=== PATIENT | female | born 1945 | race Caucasian/White ===

== ENCOUNTER 2018-06-20 17:38 | Inpatient (IN) | payer MEDICARE, OTHER ==
[~2018-06-20] VITALS: Ht 170.2 cm; Wt 80.9 kg
--- NOTE | 2018-06-20 18:27 | NUR ---
Dr. Ferguson at bedside to evaluate pt.
[2018-06-20] MEDS ORDERED: SODIUM CHLORIDE 0.9% 1,000 ML IV ONE (18:37)
--- NOTE | 2018-06-20 18:51 | NUR ---
requested records from [facility] in [facility].
[2018-06-20] MEDS ORDERED: HYDROmorphone 2 MG/ML, 1ML IVPush PRN (19:00)
[2018-06-20] MEDS ORDERED: ONDANSETRON 2MG/ML, 2ML IVPush ONE (19:00)
[2018-06-20] MEDS ORDERED: SODIUM CHLORIDE FLUSH 10ML SYR IVF ONE (19:00)
--- NOTE | 2018-06-20 19:00 | NUR ---
Port accessed, labs drawn with track laborer at bedside.
--- NOTE | 2018-06-20 19:04 | NUR ---
EDT at bedside for EKG.
[2018-06-20 19:07] LABS: MEAN CORPUSCULAR HEMOGLOBIN 33.3 pg (27.0-34.8); MEAN CORPUSCULAR HGB CONC 34.2 g/dL (32.4-35.8); MEAN CORPUSCULAR VOLUME 97.6 fL (80-100); MEAN PLATELET VOLUME 8.4 fL (7.4-10.4); PLATELET COUNT 196 x10^3/uL (130-400); RED BLOOD COUNT 3.28 x10^6/uL (3.82-5.3); RED CELL DISTRIBUTION WIDTH 19.5 % (9.6-15.2)
[2018-06-20] MEDS ORDERED: ONDANSETRON 2MG/ML, 2ML ONE (19:07)
[2018-06-20] MEDS ORDERED: HYDROmorphone 2 MG/ML, 1ML ONE (19:08)
[2018-06-20 19:19] LABS: ALANINE AMINOTRANSFERASE 496 U/L (12-78); ALBUMIN 2.6 g/dL (3.4-5.0); ANION GAP 11 mmol/L (5-15); CHLORIDE 99 mmol/L (98-107); CREATININE 0.52 mg/dL (0.55-1.02)
[2018-06-20 19:26] LABS: ALKALINE PHOSPHATASE 303 U/L (45-117); BILIRUBIN,TOTAL 2.1 mg/dL (0.2-1.0); TOTAL PROTEIN 5.3 g/dL (6.4-8.2)
[2018-06-20 19:27] LABS: MD YES
[2018-06-20 19:31] LABS: ANISOCYTOSIS 1+; BAND#(MANUAL) 2.85 x10^3/uL; BANDS%(MANUAL) 23 % (0-7); LYMPHS% (MANUAL) 4 % (22-44); MONOS#(MANUAL) 0.12 x10^3/uL (0.3-2.7); MONOS% (MANUAL) 1 % (2-9); POLYCHROMASIA 1+; SEG#(MANUAL) 8.93 x10^3/uL (1.8-6.8); SEGS% (MANUAL) 72 % (42-75)
[2018-06-20 19:32] LABS: <PLATELET ESTIMATE> ADEQUATE; LARGE PLATELETS 1+; PMNS WITH VACUOLES 2+
[2018-06-20 19:42] LABS: INTERNATIONAL NORMALIZED RATIO 1.25 (0.93-1.1); PROTHROMBIN TIME 13.1 Seconds (9.6-11.5)
--- NOTE | 2018-06-20 20:25 | NUR ---
[facility] in [facility] - 06/20/18 at 2026 by ALISA Mini cath armando well
--- NOTE | 2018-06-20 20:27 | NUR ---
pt ambulatory to BR for urine void. Unable to produce urine. Back to bed. IVF infusing
--- NOTE | 2018-06-20 20:46 | NUR ---
SPO2 90% RA. Placed on 2L O2 N/C at this time.
[2018-06-20] MEDS ORDERED: OMNIPAQUE 350 MG/ML, 100ML BOTTLE ONE (21:00)
--- NOTE | 2018-06-20 21:28 | NUR ---
Pt resting on gurney, labs drawn for blood cultures x 2 and lactate. Pt states that pain is much improved after pain medication. Pt more talkative, eyes open, pt and family made aware that we are waiting on CT scan results. VS rechecked and stable. IVF running. Pt aware of plan for straight cath for urine sample, pt agrees.
[2018-06-20] MEDS ORDERED: PIPERACILLIN/TAZO/PMX 3.375GM 50 ML IV ONE (22:00)
[2018-06-20] MEDS ORDERED: VANCOMYCIN PER PHARMACY MC PRN (22:00)
--- NOTE | 2018-06-20 22:00 | NUR ---
Pt mini cathed, tolerated procedure well. Sample walked to lab, pt with 350 mL tea-colored urine output.
--- NOTE | 2018-06-20 22:20 | NUR ---
Dr. Ferguson at bedside to discuss ED findings and POC. Pt and family agree to fecal disimpaction with procedural sedation.
[2018-06-20 22:21] LABS: MICROSCOPIC INDICATED
[2018-06-20 22:23] LABS: CULTURE INDICATED? NO
[2018-06-20] MEDS ORDERED: PROPOFOL 10 MG/ML, 20ML ONE ×2 (22:25→23:03)
[2018-06-20] MEDS ORDERED: PROPOFOL 10 MG/ML, 20ML IVPush ONE (22:30)
[2018-06-20] MEDS ORDERED: VANCOMYCIN 1,300 MG in SODIUM CHLORIDE 0.9% 250 ML IV ONE (22:30)
[2018-06-20] MEDS ORDERED: MORP30TA81 PO (22:46)
[2018-06-20] MEDS ORDERED: ENOX60SY4 SC (22:46)
[2018-06-20] MEDS ORDERED: hydromorphone PO (22:46)
[2018-06-20] MEDS ORDERED: OMEP-110 PO (22:46)
[2018-06-20] MEDS ORDERED: ACET-1600 PO (22:46)
--- NOTE | 2018-06-20 23:26 | NUR ---
Dr. Ferguson at bedside for procedure. Pt turned onto left side, remains on all monitors, NC at 6lpm. 50 mg initial dose of propofol given.
--- NOTE | 2018-06-20 23:42 | NUR ---
Procedure complete, total dose of propofol given: 100 mg. Pt tolerated procedure well, moderate amount of cabezas/green stool removed by MD. Pt returned to supine position, propped to left slightly. NC O2 turned down to 2L. Dr. Ferguson to waiting room to retrieve family and update them.
--- NOTE | 2018-06-20 23:46 | NUR ---
RNAdriana, at bedside to witness propofol waste, 100 mg.
--- NOTE | 2018-06-20 23:54 | NUR ---
William SIMMONS, at bedside to evaluate pt for admission. IV Vanco started, ok per [facility].
[2018-06-21] MEDS ORDERED: POLYETHYLENE GLYCOL 17 GM PACKET PO PRN (00:30)
[2018-06-21] MEDS ORDERED: VANCOMYCIN PER PHARMACY MC PRN (00:30)
[2018-06-21] MEDS ORDERED: ONDANSETRON 2MG/ML, 2ML IVPush PRN (00:30)
[2018-06-21] MEDS ORDERED: BISACODYL 10 MG SUPP PR PRN (00:30)
--- NOTE | 2018-06-21 00:47 | NUR ---
Telephone SBAR report given to RNAdeline. Pt and family made aware of new room.
[2018-06-21 01:30] VITALS: BP 94/59
[2018-06-21] MEDS ORDERED: PHARMACOKINETIC CONSULTATION MC ONE (02:00)
[2018-06-21] MEDS ORDERED: PHARMACOKINETIC MONITORING MC PRN (02:00)
[2018-06-21] MEDS: NS + 40MEQ KCL 1,000 ML IV SCH ×2 (02:31→16:54)
[2018-06-21] MEDS: PIPERACILLIN/TAZO/PMX 3.375GM 50 ML IV SCH ×2 (02:31→08:00)
[2018-06-21 05:37] LABS: MEAN CORPUSCULAR HEMOGLOBIN 33.1 pg (27.0-34.8); MEAN CORPUSCULAR HGB CONC 33.7 g/dL (32.4-35.8); MEAN CORPUSCULAR VOLUME 98.4 fL (80-100); MEAN PLATELET VOLUME 8.9 fL (7.4-10.4); PLATELET COUNT 187 x10^3/uL (130-400); RED BLOOD COUNT 2.84 x10^6/uL (3.82-5.3); RED CELL DISTRIBUTION WIDTH 19.5 % (9.6-15.2)
[2018-06-21 05:50] LABS: CHLORIDE 102 mmol/L (98-107)
[2018-06-21 05:59] LABS: MD YES
[2018-06-21 06:02] LABS: ANISOCYTOSIS 1+; BAND#(MANUAL) 2.27 x10^3/uL; BANDS%(MANUAL) 12 % (0-7); LYMPH#(MANUAL) 0.38 x10^3/uL (1-3.4); LYMPHS% (MANUAL) 2 % (22-44); MONOS#(MANUAL) 0.57 x10^3/uL (0.3-2.7); MONOS% (MANUAL) 3 % (2-9); SEG#(MANUAL) 15.69 x10^3/uL (1.8-6.8); SEGS% (MANUAL) 83 % (42-75)
[2018-06-21 06:03] LABS: <PLATELET ESTIMATE> ADEQUATE; <PLT MORPHOLOGY> NORMAL PLT MORPH; PMNS WITH VACUOLES 1+
[2018-06-21 06:15] LABS: ALANINE AMINOTRANSFERASE 1233 U/L (12-78); ALBUMIN 2.2 g/dL (3.4-5.0); ALKALINE PHOSPHATASE 303 U/L (45-117); ANION GAP 10 mmol/L (5-15); CALCIUM 7.5 mg/dL (8.5-10.1); CREATININE 0.51 mg/dL (0.55-1.02); TOTAL PROTEIN 4.5 g/dL (6.4-8.2)
[2018-06-21 07:27] VITALS: BP 125/77
[2018-06-21] MEDS ORDERED: MAGNESIUM SULFATE PMX 4GM/100M 100 ML IV ONE (07:30)
[2018-06-21] MEDS ORDERED: METHYLNALTREXONE 12 MG/0.6 ML SQ SCH (09:00)
[2018-06-21] MEDS: SENNA/DOCUSATE TABLET PO SCH (09:43)
[2018-06-21] MEDS: ENOXAPARIN 60 MG/0.6 ML SQ SCH ×2 (09:44→19:58)
[2018-06-21] MEDS: OMEPRAZOLE 20 MG CAPSULE.DR PO SCH ×2 (09:44→19:58)
[2018-06-21] MEDS ORDERED: MORPHINE SULFATE 4 MG/ML, 1ML IVPush PRN (10:30)
[2018-06-21 13:01] VITALS: BP 167/96
[2018-06-21] MEDS ORDERED: HYDROmorphone 2 MG/ML, 1ML ONE ×3 (14:11→23:36)
[2018-06-21] MEDS: HYDROmorphone 1 MG/ML, 1ML IV PRN ×5 (14:15→23:37)
[2018-06-21] MEDS: MEROPENEM 1 GM in SODIUM CHLORIDE 0.9% 100 ML IV SCH ×2 (14:15→22:08)
[2018-06-21 20:23] LABS: ALBUMIN 2.4 g/dL (3.4-5.0); ANION GAP 8 mmol/L (5-15); CALCIUM 7.6 mg/dL (8.5-10.1); CHLORIDE 102 mmol/L (98-107)
[2018-06-21 20:32] LABS: ALANINE AMINOTRANSFERASE 1059 U/L (12-78); ALKALINE PHOSPHATASE 344 U/L (45-117); BILIRUBIN,TOTAL 2.2 mg/dL (0.2-1.0); CREATININE 0.39 mg/dL (0.55-1.02); TOTAL PROTEIN 5.2 g/dL (6.4-8.2)
[2018-06-21 21:05] VITALS: BP 172/103
[2018-06-21] MEDS: ACETAMINOPHEN 325 MG TABLET PO PRN (21:35)
[2018-06-21] MEDS: hydrALAzine 20 MG/ML, 1ML IV PRN (22:08)
[2018-06-21] MEDS: VANCOMYCIN 1,300 MG in SODIUM CHLORIDE 0.9% 250 ML IV SCH (23:32)
[2018-06-22] MEDS: NS + 40MEQ KCL 1,000 ML IV SCH ×3 (02:24→22:56)
[2018-06-22 03:07] VITALS: BP 156/92
[2018-06-22] MEDS ORDERED: HYDROmorphone 2 MG/ML, 1ML ONE ×5 (05:39→22:51)
[2018-06-22] MEDS: MEROPENEM 1 GM in SODIUM CHLORIDE 0.9% 100 ML IV SCH ×3 (05:42→22:03)
[2018-06-22] MEDS: HYDROmorphone 1 MG/ML, 1ML IV PRN ×5 (05:42→22:56)
[2018-06-22 06:26] LABS: BASOPHILS % (AUTO) 0 % (0-1); EOSINOPHILS # (AUTO) 0.07 x10^3/uL (0-0.4); EOSINOPHILS % (AUTO) 0 % (1-7); LYMPHOCYTES # (AUTO) 0.48 x10^3/uL (1-3.4); LYMPHOCYTES % (AUTO) 3 % (22-44); MD NO; MEAN CORPUSCULAR HEMOGLOBIN 32.9 pg (27.0-34.8); MEAN CORPUSCULAR HGB CONC 33.8 g/dL (32.4-35.8); MEAN CORPUSCULAR VOLUME 97.4 fL (80-100); MONOCYTES # (AUTO) 0.91 x10^3/uL (0.2-0.8); MONOCYTES % (AUTO) 5 % (2-9); NEUTROPHILS # (AUTO) 16.59 x10^3/uL (1.8-6.8); NEUTROPHILS % (AUTO) 92 % (42-75); PLATELET COUNT 222 x10^3/uL (130-400); RED BLOOD COUNT 3.16 x10^6/uL (3.82-5.3); RED CELL DISTRIBUTION WIDTH 19.9 % (9.6-15.2)
[2018-06-22 06:36] LABS: CHLORIDE 104 mmol/L (98-107)
[2018-06-22 06:42] LABS: ALANINE AMINOTRANSFERASE 930 U/L (12-78); ALBUMIN 2.5 g/dL (3.4-5.0); ALKALINE PHOSPHATASE 358 U/L (45-117); ANION GAP 6 mmol/L (5-15); BILIRUBIN,TOTAL 1.6 mg/dL (0.2-1.0); CALCIUM 7.9 mg/dL (8.5-10.1); CREATININE 0.33 mg/dL (0.55-1.02); TOTAL PROTEIN 5.5 g/dL (6.4-8.2)
[2018-06-22 07:18] VITALS: BP 165/73
[2018-06-22] MEDS ORDERED: GOLYTELY 4,000ML ORAL.SOL PO ONE (09:00)
[2018-06-22] MEDS: SENNA/DOCUSATE TABLET PO SCH (09:17)
[2018-06-22] MEDS: OMEPRAZOLE 20 MG CAPSULE.DR PO SCH ×2 (09:17→21:00)
[2018-06-22] MEDS: ENOXAPARIN 60 MG/0.6 ML SQ SCH ×2 (10:57→22:05)
[2018-06-22 13:30] VITALS: BP 163/94
[2018-06-22 20:14] VITALS: BP_SYST 188; BP_SYST 195; BP_DIAS 100; BP_DIAS 108
[2018-06-22 20:28] VITALS: BP 177/101
[2018-06-22] MEDS: hydrALAzine 20 MG/ML, 1ML IV PRN (20:36)
[2018-06-22] MEDS: BISACODYL 10 MG SUPP PR SCH (21:20)
[2018-06-22 22:02] VITALS: BP 144/82
[2018-06-22] MEDS: VANCOMYCIN 1,300 MG in SODIUM CHLORIDE 0.9% 250 ML IV SCH (23:00)
[2018-06-23 01:26] VITALS: BP 164/94
[2018-06-23] MEDS ORDERED: HYDROmorphone 2 MG/ML, 1ML ONE ×6 (03:25→22:13)
[2018-06-23] MEDS: HYDROmorphone 1 MG/ML, 1ML IV PRN ×6 (03:30→22:17)
[2018-06-23] MEDS: MEROPENEM 1 GM in SODIUM CHLORIDE 0.9% 100 ML IV SCH ×2 (05:52→14:06)
[2018-06-23 06:23] LABS: BASOPHILS # (AUTO) 0.01 x10^3/uL (0-0.1); BASOPHILS % (AUTO) 0 % (0-1); EOSINOPHILS % (AUTO) 0 % (1-7); LYMPHOCYTES % (AUTO) 3 % (22-44); MD NO; MEAN CORPUSCULAR HEMOGLOBIN 32.7 pg (27.0-34.8); MEAN CORPUSCULAR HGB CONC 33.5 g/dL (32.4-35.8); MEAN CORPUSCULAR VOLUME 97.6 fL (80-100); MEAN PLATELET VOLUME 8.8 fL (7.4-10.4); MONOCYTES # (AUTO) 0.75 x10^3/uL (0.2-0.8); MONOCYTES % (AUTO) 4 % (2-9); NEUTROPHILS # (AUTO) 16.53 x10^3/uL (1.8-6.8); NEUTROPHILS % (AUTO) 93 % (42-75); PLATELET COUNT 198 x10^3/uL (130-400); RED BLOOD COUNT 3.03 x10^6/uL (3.82-5.3); RED CELL DISTRIBUTION WIDTH 20.1 % (9.6-15.2)
[2018-06-23 06:40] LABS: CHLORIDE 102 mmol/L (98-107)
[2018-06-23 06:49] LABS: ALANINE AMINOTRANSFERASE 551 U/L (12-78); ALBUMIN 2.3 g/dL (3.4-5.0); ALKALINE PHOSPHATASE 322 U/L (45-117); ANION GAP 10 mmol/L (5-15); CALCIUM 7.4 mg/dL (8.5-10.1); CREATININE 0.24 mg/dL (0.55-1.02)
[2018-06-23 07:59] VITALS: BP 197/103
[2018-06-23] MEDS: SENNA/DOCUSATE TABLET PO SCH (08:39)
[2018-06-23] MEDS: BISACODYL 10 MG SUPP PR SCH ×2 (08:39→20:40)
[2018-06-23] MEDS: OMEPRAZOLE 20 MG CAPSULE.DR PO SCH ×2 (08:39→20:13)
[2018-06-23] MEDS: hydrALAzine 20 MG/ML, 1ML IV PRN (08:39)
[2018-06-23] MEDS: ENOXAPARIN 60 MG/0.6 ML SQ SCH ×2 (08:39→21:00)
[2018-06-23 09:36] VITALS: BP 144/88
[2018-06-23 14:20] VITALS: BP 144/82
[2018-06-23] MEDS: CEFTRIAXONE PMX 2GM/50ML 50 ML IV SCH (20:14)
[2018-06-23 20:40] VITALS: BP 158/87
[2018-06-23] MEDS: ACETAMINOPHEN 325 MG TABLET PO PRN (21:46)
[2018-06-24 01:12] VITALS: BP 147/83
[2018-06-24] MEDS ORDERED: HYDROmorphone 2 MG/ML, 1ML ONE ×6 (02:15→21:59)
[2018-06-24] MEDS: HYDROmorphone 1 MG/ML, 1ML IV PRN ×6 (02:19→22:04)
[2018-06-24 08:17] LABS: ALANINE AMINOTRANSFERASE 406 U/L (12-78); ALBUMIN 2.5 g/dL (3.4-5.0); ANION GAP 8 mmol/L (5-15); CALCIUM 8.2 mg/dL (8.5-10.1); CHLORIDE 97 mmol/L (98-107); CREATININE 0.28 mg/dL (0.55-1.02)
[2018-06-24 08:19] LABS: ALKALINE PHOSPHATASE 309 U/L (45-117); BILIRUBIN,TOTAL 0.9 mg/dL (0.2-1.0); TOTAL PROTEIN 5.8 g/dL (6.4-8.2)
[2018-06-24 08:28] LABS: BASOPHILS % (AUTO) 0 % (0-1); EOSINOPHILS # (AUTO) 0.03 x10^3/uL (0-0.4); EOSINOPHILS % (AUTO) 0 % (1-7); LYMPHOCYTES # (AUTO) 0.64 x10^3/uL (1-3.4); LYMPHOCYTES % (AUTO) 4 % (22-44); MD SCAN; MEAN CORPUSCULAR HGB CONC 32.7 g/dL (32.4-35.8); MEAN CORPUSCULAR VOLUME 98.1 fL (80-100); MEAN PLATELET VOLUME 8.6 fL (7.4-10.4); MONOCYTES % (AUTO) 7 % (2-9); NEUTROPHILS # (AUTO) 13.45 x10^3/uL (1.8-6.8); NEUTROPHILS % (AUTO) 89 % (42-75); PLATELET COUNT 230 x10^3/uL (130-400); RED BLOOD COUNT 3.48 x10^6/uL (3.82-5.3)
[2018-06-24 08:29] LABS: HEMOGRAM NOTE RECHECKED; RED CELL DISTRIBUTION WIDTH 20.2 % (9.6-15.2)
[2018-06-24] MEDS: OMEPRAZOLE 20 MG CAPSULE.DR PO SCH ×2 (08:30→19:34)
[2018-06-24] MEDS: SENNA/DOCUSATE TABLET PO SCH (08:31)
[2018-06-24] MEDS: BISACODYL 10 MG SUPP PR SCH ×2 (09:00→19:34)
[2018-06-24] MEDS: ENOXAPARIN 80 MG/0.8 ML SQ SCH ×2 (09:00→19:34)
[2018-06-24 09:02] VITALS: BP 197/100
[2018-06-24] MEDS: hydrALAzine 20 MG/ML, 1ML IV PRN (09:51)
[2018-06-24] MEDS ORDERED: FENTANYL PF 100 MCG/2ML ONE (11:00)
[2018-06-24] MEDS ORDERED: MIDAZOLAM 1 MG/ML, 5ML ONE (11:00)
[2018-06-24] MEDS ORDERED: NALOXONE 1 MG/ML, 2ML ONE (11:00)
[2018-06-24] MEDS ORDERED: FLUMAZENIL 0.1 MG/1 ML, 5ML ONE (11:00)
[2018-06-24] MEDS ORDERED: LIDOCAINE-MPF 1%, 5ML ONE ×2 (11:02→11:27)
[2018-06-24 13:05] VITALS: BP 149/82
[2018-06-24] MEDS ORDERED: GOLYTELY 4,000ML ORAL.SOL PO ONE (14:00)
[2018-06-24] MEDS: CEFTRIAXONE PMX 2GM/50ML 50 ML IV SCH (18:07)
[2018-06-24] MEDS: metroNIDAZOLE 500 MG TABLET PO SCH (18:08)
[2018-06-24 19:07] LABS: BASOPHILS % (AUTO) 0 % (0-1); EOSINOPHILS % (AUTO) 0 % (1-7); LYMPHOCYTES % (AUTO) 5 % (22-44); MD NO; MEAN CORPUSCULAR HEMOGLOBIN 32.5 pg (27.0-34.8); MEAN CORPUSCULAR HGB CONC 33.7 g/dL (32.4-35.8); MEAN CORPUSCULAR VOLUME 96.4 fL (80-100); MEAN PLATELET VOLUME 8.4 fL (7.4-10.4); MONOCYTES # (AUTO) 1.12 x10^3/uL (0.2-0.8); MONOCYTES % (AUTO) 9 % (2-9); NEUTROPHILS # (AUTO) 11.26 x10^3/uL (1.8-6.8); NEUTROPHILS % (AUTO) 86 % (42-75); PLATELET COUNT 232 x10^3/uL (130-400); RED BLOOD COUNT 3.34 x10^6/uL (3.82-5.3); RED CELL DISTRIBUTION WIDTH 19.6 % (9.6-15.2)
[2018-06-24 19:19] LABS: ALANINE AMINOTRANSFERASE 318 U/L (12-78); ALBUMIN 2.3 g/dL (3.4-5.0); ANION GAP 9 mmol/L (5-15); CALCIUM 7.8 mg/dL (8.5-10.1); CHLORIDE 97 mmol/L (98-107); CREATININE 0.22 mg/dL (0.55-1.02)
[2018-06-24 19:22] LABS: ALKALINE PHOSPHATASE 287 U/L (45-117); BILIRUBIN,TOTAL 0.8 mg/dL (0.2-1.0); TOTAL PROTEIN 5.4 g/dL (6.4-8.2)
[2018-06-24 19:49] VITALS: BP 169/96
[2018-06-25] MEDS: metroNIDAZOLE 500 MG TABLET PO SCH ×2 (00:32→08:24)
[2018-06-25 00:51] VITALS: BP 193/86
[2018-06-25] MEDS: hydrALAzine 20 MG/ML, 1ML IV PRN ×2 (01:00→19:56)
[2018-06-25] MEDS ORDERED: HYDROmorphone 2 MG/ML, 1ML ONE ×6 (02:01→22:15)
[2018-06-25] MEDS: HYDROmorphone 1 MG/ML, 1ML IV PRN ×6 (02:04→22:18)
[2018-06-25 02:07] VITALS: BP 133/78
[2018-06-25 07:04] VITALS: BP 137/78
[2018-06-25] MEDS ORDERED: SODIUM PHOSPHATE 4 MEQ/ML IV SCH (07:30)
[2018-06-25] MEDS ORDERED: MAGNESIUM SULFATE PMX 4GM/100M 100 ML IVPB ONE (07:30)
[2018-06-25] MEDS ORDERED: POTASSIUM CHLORIDE 20 MEQ TAB.ER.PRT PO ONE ×2 (08:00→11:30)
[2018-06-25] MEDS: ENOXAPARIN 80 MG/0.8 ML SQ SCH ×2 (08:23→19:55)
[2018-06-25] MEDS: OMEPRAZOLE 20 MG CAPSULE.DR PO SCH ×2 (08:24→19:57)
[2018-06-25] MEDS: SENNA/DOCUSATE TABLET PO SCH (08:24)
[2018-06-25] MEDS: METOCLOPRAMIDE 5 MG/ML, 2ML IVPush SCH ×2 (08:25→19:56)
[2018-06-25] MEDS: BISACODYL 10 MG SUPP PR SCH ×2 (08:49→19:57)
[2018-06-25] MEDS ORDERED: SODIUM PHOSPHATE 30 MMOL in SODIUM CHLORIDE 0.9% 500 ML IV ONE (09:00)
[2018-06-25 13:46] VITALS: BP 118/72
[2018-06-25] MEDS ORDERED: MAGNESIUM CITRATE 300ML ORAL SOL PO ONE (17:00)
[2018-06-25] MEDS: METRONIDAZOLE PMX 500MG/100ML 100 ML IV SCH (17:05)
[2018-06-25 19:28] VITALS: BP 171/99
[2018-06-25] MEDS: CEFTRIAXONE PMX 2GM/50ML 50 ML IV SCH (19:56)
[2018-06-25] MEDS: ACETAMINOPHEN 325 MG TABLET PO PRN (21:07)
[2018-06-26] MEDS: METRONIDAZOLE PMX 500MG/100ML 100 ML IV SCH ×3 (00:01→16:28)
[2018-06-26 03:00] VITALS: BP 130/77
[2018-06-26] MEDS ORDERED: HYDROmorphone 2 MG/ML, 1ML ONE ×2 (04:10→08:51)
[2018-06-26] MEDS: HYDROmorphone 1 MG/ML, 1ML IV PRN ×2 (04:14→08:57)
[2018-06-26] MEDS: ACETAMINOPHEN 325 MG TABLET PO PRN (04:14)
[2018-06-26 04:42] LABS: BASOPHILS # (AUTO) 0.02 x10^3/uL (0-0.1); BASOPHILS % (AUTO) 0 % (0-1); EOSINOPHILS # (AUTO) 0.05 x10^3/uL (0-0.4); EOSINOPHILS % (AUTO) 1 % (1-7); LYMPHOCYTES # (AUTO) 0.92 x10^3/uL (1-3.4); LYMPHOCYTES % (AUTO) 9 % (22-44); MD NO; MEAN CORPUSCULAR HEMOGLOBIN 32.1 pg (27.0-34.8); MEAN CORPUSCULAR HGB CONC 32.8 g/dL (32.4-35.8); MEAN CORPUSCULAR VOLUME 97.8 fL (80-100); MEAN PLATELET VOLUME 9.1 fL (7.4-10.4); MONOCYTES # (AUTO) 1.12 x10^3/uL (0.2-0.8); MONOCYTES % (AUTO) 12 % (2-9); NEUTROPHILS # (AUTO) 7.65 x10^3/uL (1.8-6.8); NEUTROPHILS % (AUTO) 78 % (42-75); PLATELET COUNT 203 x10^3/uL (130-400); RED BLOOD COUNT 3.22 x10^6/uL (3.82-5.3); RED CELL DISTRIBUTION WIDTH 19.5 % (9.6-15.2)
[2018-06-26 04:43] LABS: ALANINE AMINOTRANSFERASE 203 U/L (12-78); ALBUMIN 2.2 g/dL (3.4-5.0); ANION GAP 8 mmol/L (5-15); CALCIUM 7.5 mg/dL (8.5-10.1); CHLORIDE 95 mmol/L (98-107)
[2018-06-26 04:44] LABS: ALKALINE PHOSPHATASE 229 U/L (45-117); BILIRUBIN,TOTAL 0.7 mg/dL (0.2-1.0)
[2018-06-26] MEDS ORDERED: POTASSIUM CHLORIDE 20 MEQ TAB.ER.PRT PO ONE ×2 (05:30→09:30)
[2018-06-26 07:28] VITALS: BP 173/82
[2018-06-26] MEDS: OMEPRAZOLE 20 MG CAPSULE.DR PO SCH ×2 (08:36→20:27)
[2018-06-26] MEDS: ENOXAPARIN 80 MG/0.8 ML SQ SCH ×2 (08:37→20:26)
[2018-06-26] MEDS: METOCLOPRAMIDE 5 MG/ML, 2ML IVPush SCH (08:38)
[2018-06-26] MEDS: SENNA/DOCUSATE TABLET PO SCH (08:39)
[2018-06-26] MEDS: BISACODYL 10 MG SUPP PR SCH ×2 (08:39→20:27)
[2018-06-26] MEDS: POTASSIUM CHLORIDE 20 MEQ TAB.ER.PRT PO SCH ×3 (09:00→20:27)
[2018-06-26] MEDS: AMLODIPINE 2.5 MG TABLET PO SCH (10:17)
[2018-06-26] MEDS: HYDROmorphone 2 MG/ML, 1ML IV PRN ×6 (13:11→23:30)
[2018-06-26 14:56] VITALS: BP 176/120
[2018-06-26 15:45] VITALS: BP 166/94
[2018-06-26 19:33] VITALS: BP 157/95
[2018-06-26] MEDS ORDERED: OMNIPAQUE 350 MG/ML, 100ML BOTTLE ONE (20:05)
[2018-06-26] MEDS: CEFTRIAXONE PMX 2GM/50ML 50 ML IV SCH (20:26)
[2018-06-27] MEDS: METRONIDAZOLE PMX 500MG/100ML 100 ML IV SCH ×3 (00:01→16:22)
[2018-06-27] MEDS: HYDROmorphone 2 MG/ML, 1ML IV PRN ×5 (02:21→19:35)
[2018-06-27 02:59] VITALS: BP 147/88
[2018-06-27] MEDS ORDERED: KETOROLAC 30 MG/1 ML IVPush PRN (03:00)
[2018-06-27] MEDS ORDERED: KETOROLAC 30 MG/1 ML IM PRN (03:00)
[2018-06-27 05:12] LABS: MEAN CORPUSCULAR HGB CONC 32.8 g/dL (32.4-35.8); MEAN CORPUSCULAR VOLUME 97.6 fL (80-100); MEAN PLATELET VOLUME 8.9 fL (7.4-10.4); PLATELET COUNT 166 x10^3/uL (130-400); RED BLOOD COUNT 2.94 x10^6/uL (3.82-5.3); RED CELL DISTRIBUTION WIDTH 19.9 % (9.6-15.2)
[2018-06-27 05:16] LABS: ANION GAP 6 mmol/L (5-15); CALCIUM 7.3 mg/dL (8.5-10.1); CHLORIDE 97 mmol/L (98-107)
[2018-06-27 05:19] LABS: ALANINE AMINOTRANSFERASE 144 U/L (12-78); ALKALINE PHOSPHATASE 184 U/L (45-117); BILIRUBIN,TOTAL 0.5 mg/dL (0.2-1.0); CREATININE 0.32 mg/dL (0.55-1.02); TOTAL PROTEIN 4.7 g/dL (6.4-8.2)
[2018-06-27 05:51] LABS: BASOPHILS % (AUTO) 0 % (0-1); EOSINOPHILS # (AUTO) 0.07 x10^3/uL (0-0.4); EOSINOPHILS % (AUTO) 1 % (1-7); LYMPHOCYTES # (AUTO) 0.58 x10^3/uL (1-3.4); LYMPHOCYTES % (AUTO) 6 % (22-44); MD SCAN; MONOCYTES # (AUTO) 1.05 x10^3/uL (0.2-0.8); MONOCYTES % (AUTO) 11 % (2-9); NEUTROPHILS % (AUTO) 83 % (42-75)
[2018-06-27 07:30] VITALS: BP 136/89
[2018-06-27] MEDS: KETOROLAC 30 MG/1 ML IVPush PRN ×3 (09:33→22:41)
[2018-06-27] MEDS: POTASSIUM CHLORIDE 20 MEQ TAB.ER.PRT PO SCH (09:34)
[2018-06-27] MEDS: AMLODIPINE 2.5 MG TABLET PO SCH (09:35)
[2018-06-27] MEDS: OMEPRAZOLE 20 MG CAPSULE.DR PO SCH ×2 (09:35→20:34)
[2018-06-27] MEDS: ENOXAPARIN 80 MG/0.8 ML SQ SCH ×2 (09:35→20:34)
[2018-06-27] MEDS: METOCLOPRAMIDE 10MG TABLET PO SCH (09:36)
[2018-06-27] MEDS: SENNA/DOCUSATE TABLET PO SCH (09:36)
[2018-06-27] MEDS: BISACODYL 10 MG SUPP PR SCH ×2 (09:36→21:00)
[2018-06-27] MEDS ORDERED: CEFD300C37 PO (13:13)
[2018-06-27] MEDS ORDERED: ENOX80SY4 SQ (13:13)
[2018-06-27] MEDS ORDERED: METR500T PO (13:13)
[2018-06-27] MEDS ORDERED: AMLO2.5T3 PO (13:15)
[2018-06-27 13:46] VITALS: BP 118/78
[2018-06-27] MEDS: ACETAMINOPHEN 325 MG TABLET PO PRN (14:43)
[2018-06-27] MEDS ORDERED: FUROSEMIDE 20 MG/2 ML ONE (16:14)
[2018-06-27] MEDS ORDERED: FUROSEMIDE 20 MG/2 ML IV ONE (16:30)
[2018-06-27 20:15] VITALS: BP 171/97
[2018-06-27] MEDS: CEFTRIAXONE PMX 2GM/50ML 50 ML IV SCH (20:34)
[2018-06-28] MEDS: METRONIDAZOLE PMX 500MG/100ML 100 ML IV SCH ×2 (00:41→07:36)
[2018-06-28 02:46] VITALS: BP 144/84
[2018-06-28] MEDS: HYDROmorphone 2 MG/ML, 1ML IV PRN ×2 (02:49→07:36)
[2018-06-28 04:39] LABS: BASOPHILS # (AUTO) 0.01 x10^3/uL (0-0.1); BASOPHILS % (AUTO) 0 % (0-1); EOSINOPHILS # (AUTO) 0.19 x10^3/uL (0-0.4); EOSINOPHILS % (AUTO) 3 % (1-7); LYMPHOCYTES # (AUTO) 0.54 x10^3/uL (1-3.4); LYMPHOCYTES % (AUTO) 9 % (22-44); MD NO; MEAN CORPUSCULAR HEMOGLOBIN 32.4 pg (27.0-34.8); MEAN CORPUSCULAR HGB CONC 32.9 g/dL (32.4-35.8); MEAN CORPUSCULAR VOLUME 98.6 fL (80-100); MEAN PLATELET VOLUME 8.8 fL (7.4-10.4); MONOCYTES # (AUTO) 0.67 x10^3/uL (0.2-0.8); MONOCYTES % (AUTO) 11 % (2-9); NEUTROPHILS % (AUTO) 76 % (42-75); PLATELET COUNT 152 x10^3/uL (130-400); RED BLOOD COUNT 2.68 x10^6/uL (3.82-5.3); RED CELL DISTRIBUTION WIDTH 19.4 % (9.6-15.2)
[2018-06-28 04:47] LABS: ALANINE AMINOTRANSFERASE 104 U/L (12-78); ALBUMIN 1.9 g/dL (3.4-5.0); ANION GAP 7 mmol/L (5-15); CALCIUM 7.8 mg/dL (8.5-10.1); CHLORIDE 97 mmol/L (98-107); CREATININE 0.29 mg/dL (0.55-1.02)
[2018-06-28 04:49] LABS: ALKALINE PHOSPHATASE 160 U/L (45-117); BILIRUBIN,TOTAL 0.4 mg/dL (0.2-1.0); TOTAL PROTEIN 4.5 g/dL (6.4-8.2)
[2018-06-28] MEDS: KETOROLAC 30 MG/1 ML IVPush PRN (05:56)
[2018-06-28 06:59] VITALS: BP 145/81
[2018-06-28 07:21] VITALS: BP 145/88
[2018-06-28] MEDS: BISACODYL 10 MG SUPP PR SCH (07:23)
[2018-06-28] MEDS: METOCLOPRAMIDE 10MG TABLET PO SCH (07:23)
[2018-06-28] MEDS: SENNA/DOCUSATE TABLET PO SCH (07:23)
[2018-06-28] MEDS: OMEPRAZOLE 20 MG CAPSULE.DR PO SCH (07:36)
[2018-06-28] MEDS: AMLODIPINE 2.5 MG TABLET PO SCH (07:36)
[2018-06-28] MEDS: ENOXAPARIN 80 MG/0.8 ML SQ SCH (07:37)
== END 2018-06-28 09:25 | disposition home or self-care (01) | DRG 314 ==
LOC: ED 20:39 → EDIP 23:55 → 4NOR 06-21 01:36 → 3NW 06-22 16:15
PROVIDERS: ADMIT Hospitalist; ATTEND Hospitalist
PROC: 0T9B70Z Drainage of Bladder with Drainage Device, Via Natural or Artificial Opening (ICD-10-PCS; principal; 2018-06-20)
PROC: 0JPT0XZ Removal of Tunneled Vascular Access Device from Trunk Subcutaneous Tissue and Fascia, Open Approach (ICD-10-PCS; 2018-06-24)
DX: T80.211A Bloodstream infection due to central venous catheter, initial encounter (principal); A41.50 Gram-negative sepsis, unspecified; E43 Unspecified severe protein-calorie malnutrition; I26.99 Other pulmonary embolism without acute cor pulmonale; C25.9 Malignant neoplasm of pancreas, unspecified; E87.1 Hypo-osmolality and hyponatremia; C78.7 Secondary malignant neoplasm of liver and intrahepatic bile duct; I50.30 Unspecified diastolic (congestive) heart failure; K56.49 Other impaction of intestine; K56.7 Ileus, unspecified; K52.9 Noninfective gastroenteritis and colitis, unspecified; K56.41 Fecal impaction; D64.9 Anemia, unspecified; E87.6 Hypokalemia; G89.29 Other chronic pain; R53.81 Other malaise; E83.42 Hypomagnesemia; Z51.5 Encounter for palliative care; D89.9 Disorder involving the immune mechanism, unspecified; T45.1X5A Adverse effect of antineoplastic and immunosuppressive drugs, initial encounter; I11.0 Hypertensive heart disease with heart failure; I35.0 Nonrheumatic aortic (valve) stenosis; Z96.651 Presence of right artificial knee joint; K75.89 Other specified inflammatory liver diseases; Z66 Do not resuscitate; Z68.27 Body mass index [BMI] 27.0-27.9, adult; Z79.02 Long term (current) use of antithrombotics/antiplatelets; Y92.89 Other specified places as the place of occurrence of the external cause; Z79.01 Long term (current) use of anticoagulants; Z79.891 Long term (current) use of opiate analgesic; Z87.11 Personal history of peptic ulcer disease; Z92.21 Personal history of antineoplastic chemotherapy
CPT/HCPCS: 36415; 36590; 51702; 74018; 74177; 77001; 80053; 81001; 83605; 83690; 83735; 84100; 84145; 85025; 85610; 85730; 87040; 87076; 87186; 93005; 93306; 96361; 96365; 96375; 99156; 99157; G0378; J0696; J1170; J1650; J1885; J2185; J2250; J2405; J2543; J2704; J3010; J3370; Q9967; J0360; J1940; J2310; J2765; J3475; J3480; J7030; J7040; J7050